=== PATIENT | female | born 1950 | race Caucasian/White ===

== ENCOUNTER 2017-04-11 00:33 | Emergency (ER) | payer MEDICARE, MEDICAID ==
[~2017-04-11] VITALS: Ht 160 cm; Wt 71.0 kg
[2017-04-11] MEDS ORDERED: IPRATROPIUM BROMIDE (0.02%) 0.5MG/2.5ML NEB HHN SCH (01:36)
[2017-04-11] MEDS ORDERED: ALBUTEROL (0.083%) 2.5MG/3ML NEB HHN SCH (01:36)
[2017-04-11] MEDS ORDERED: METHYLPREDNISOLONE SOD SUCC 125 MG/2 ML VIAL IV SCH (01:36)
[2017-04-11] MEDS ORDERED: SODIUM CHLORIDE 0.9% 1,000 ML IV ONE (01:36)
[2017-04-11] MEDS ORDERED: LEVOFLOXACIN 750MG PREMIX 150 ML IV SCH (01:45)
[2017-04-11] MEDS ORDERED: ASPIRIN 81MG TABLET PO SCH (01:45)
[2017-04-11] MEDS ORDERED: MAGNESIUM 2 G PREMIX 50 ML IV SCH (01:45)
[2017-04-11 02:15] LABS: BASOPHILS % 0.8 % (0.0-2.0); EOSINOPHILS % 12.5 % (0.0-5.0); HEMATOCRIT. 42.4 % (36.0-48.0); HEMOGLOBIN. 14.3 g/dL (12.0-16.0); LYMPHOCYTES % 30.1 % (20.0-50.0); MEAN CORPUSCULAR HEMOGLOBIN 27.7 pg (28.0-32.0); MONOCYTES % 9.2 % (2.0-8.0); NEUTROPHILS % 47.4 % (40.0-76.0); PLATELET 327 x1000/uL (130-400); RED BLOOD CELL COUNT 5.18 mill/uL (4.2-5.4); RED CELL DISTRIBUTION WIDTH 14.2 % (11.6-14.6)
[2017-04-11 02:23] LABS: D-DIMER 0.27 mg/L FEU (<0.50); PROTHROMBIN TIME 10.4 sec (9.4-11.6)
[2017-04-11 02:28] LABS: CARBON DIOXIDE 25 mEq/L (21-32); CHLORIDE 105 mEq/L (98-107); ETHANOL BLOOD < 10 mg/dL; TROPONIN I < 0.02 ng/mL (0.00-0.04)
[2017-04-11 05:25] VITALS: BP 121/72
== END 2017-04-11 05:25 | disposition home or self-care (01) ==
LOC: ER 00:33
DX: J45.901 Unspecified asthma with (acute) exacerbation (principal)
CPT/HCPCS: 36415; 71010; 80053; 83605; 83690; 83880; 84484; 85025; 85379; 85610; 87040; 93005; 94640; 96365; 96367; 96375; 99285; G0482; J1956; J2930; J3475; J7030; J7611